=== PATIENT | female | born 1995 | race Caucasian/White ===

== ENCOUNTER 2016-10-08 13:30 | Emergency (ER) | payer OTHER ==
[~2016-10-08] VITALS: Ht 162.6 cm; Wt 49.3 kg
[2016-10-08 13:31] VITALS: BP 111/75
== END 2016-10-08 15:04 | disposition left against medical advice (07) ==
LOC: M ED 14:57
DX: R14.0 Abdominal distension (gaseous) (principal); Z53.29 Procedure and treatment not carried out because of patient's decision for other reasons

== ENCOUNTER → 2016-12-03 | Outpatient (REF) | payer MEDICAID | LOC: M SFHCWAGY 16:47 | PROVIDERS: ATTEND Nurse Practitioner Family | DX: M35.09 Sjogren syndrome with other organ involvement (principal); G56.01 Carpal tunnel syndrome, right upper limb; M77.11 Lateral epicondylitis, right elbow; M77.42 Metatarsalgia, left foot; Z79.899 Other long term (current) drug therapy ==

== ENCOUNTER → 2017-01-29 | Outpatient (CLI) | payer OTHER ==
[2017-01-29 15:43] LABS: BASO % 0.8 % (0.0-1.0); EOS # 0.4 10^3/uL (0.0-0.50); EOS % 8.3 % (0.0-3.0); IMMATURE GRANULOCYTE % 0.2 % (0-0); LYMPH # 1.6 10^3/uL (1.5-6.5); LYMPH % 31.3 % (24.0-44.0); MEAN CORPUSCULAR HEMOGLOBIN 29.3 pg (27.0-33.0); MEAN CORPUSCULAR HGB CONC 33.4 g/dl (32.0-36.5); MEAN CORPUSCULAR VOLUME 87.7 fl (80.0-96.0); MONO # 0.6 10^3/uL (0.0-0.8); MONO % 11.6 % (0.0-5.0); NEUTROPHILS # 2.5 10^3/uL (1.8-7.7); NEUTROPHILS % 47.8 % (36.0-66.0); PLATELET COUNT, AUTOMATED 230 10^3/uL (150-450); RED CELL DISTRIBUTION WIDTH 12.9 % (11.5-14.5); WHITE BLOOD COUNT 5.2 10^3/uL (4.0-10.0)
[2017-01-29 16:32] LABS: ALBUMIN/GLOBULIN RATIO 1.67 (1.00-1.93); ALKALINE PHOSPHATASE 47 U/L (45-117); ALT/SGPT 20 U/L (12-78); AMYLASE 46 U/L (25-115); ANION GAP 8 MEQ/L (8-16); AST/SGOT 13 U/L (15-37); BILIRUBIN,TOTAL 0.6 MG/DL (0.2-1.0); BLOOD UREA NITROGEN 11 MG/DL (7-18); CALCIUM LEVEL 8.7 MG/DL (8.5-10.1); CARBON DIOXIDE LEVEL 25 MEQ/L (21-32); CHLORIDE LEVEL 107 MEQ/L (98-107); CREATININE FOR GFR 0.63 MG/DL (0.55-1.02); FERRITIN 31 NG/ML (8-252); GLUCOSE, FASTING 78 MG/DL (70-105); SODIUM LEVEL 140 MEQ/L (136-145); TOTAL PROTEIN 6.4 GM/DL (6.4-8.2)
== END ==
LOC: M LAB 15:10
PROVIDERS: ATTEND Nurse Practitioner Adult Health
DX: R63.0 Anorexia (principal); R10.9 Unspecified abdominal pain

== ENCOUNTER → 2017-02-10 | Outpatient (CLI) | payer OTHER ==
--- NOTE | 2017-02-11 02:27 | REP ---
Clinical: Nausea. Technique: Single supine view of the abdomen and pelvis. Findings: Bowel gas pattern is nonspecific. No organomegaly. No abnormal calcifications. Skeletal structures are intact. Impression: Normal abdominal radiograph. Signed by Joshua Arias MD 02/11/2017 02:19 A
== END ==
LOC: M RAD 15:24
PROVIDERS: ATTEND Nurse Practitioner Adult Health
DX: R11.0 Nausea (principal); R63.0 Anorexia; R10.9 Unspecified abdominal pain

== ENCOUNTER 2017-05-24 14:21 | Emergency (ER) | payer OTHER ==
[2017-05-24] MEDS: NORCO, ANEXSIA 5/325MG TABLET (HYDROcodone/ACETAMINOPHEN) PO (17:54)
[2017-05-24 18:14] LABS: KETONE, URINE AUTO RFX 1+ mg/dL (NEGATIVE); LEUKOCYTE ESTERASE UR AUTO RFX NEGATIVE (NEGATIVE); MUCUS, URINE RFX LARGE (NEGATIVE); NITRITE, URINE AUTO RFX NEGATIVE (NEGATIVE); RBC, URINE AUTO RFX 4 /HPF (0-3); SPECIFIC GRAVITY UR AUTO RFX 1.029 (1.002-1.035); SQUAM EPITHELIAL CELL UR AURFX 3 /HPF (0-6); WBC, URINE AUTO RFX 3 /HPF (0-3)
== END 2017-05-24 19:48 | disposition home or self-care (01) ==
LOC: M ED 14:21
DX: N94.6 Dysmenorrhea, unspecified (principal); J45.909 Unspecified asthma, uncomplicated; N83.209 Unspecified ovarian cyst, unspecified side; Z88.0 Allergy status to penicillin; Z88.1 Allergy status to other antibiotic agents; Z88.2 Allergy status to sulfonamides; Z87.891 Personal history of nicotine dependence
CPT/HCPCS: 76856

== ENCOUNTER → 2017-10-04 | Outpatient (REF) | payer OTHER ==
[2017-10-06 14:16] LABS: HPV HYBRID CAPTURE II Negative (Negative)
== END ==
LOC: M LAB REF 18:58
DX: Z12.4 Encounter for screening for malignant neoplasm of cervix (principal)

== ENCOUNTER → 2018-05-19 | Outpatient (CLI) | payer OTHER ==
[~2018-05-19] MED LIST: IBUP-1022 PO
[2018-05-19 18:18] LABS: BASO % 0.4 % (0.0-1.0); EOS # 0.1 10^3/uL (0.0-0.50); EOS % 0.9 % (0.0-3.0); HEMOGLOBIN 13.1 g/dl (12.0-15.5); LYMPH # 1.9 10^3/uL (1.5-6.5); LYMPH % 19.3 % (24.0-44.0); MEAN CORPUSCULAR HEMOGLOBIN 29.2 pg (27.0-33.0); MEAN CORPUSCULAR HGB CONC 33.6 g/dl (32.0-36.5); MEAN CORPUSCULAR VOLUME 86.9 fl (80.0-96.0); MONO # 0.7 10^3/uL (0.0-0.8); MONO % 7.6 % (0.0-5.0); NEUTROPHILS # 6.9 10^3/uL (1.8-7.7); NEUTROPHILS % 71.2 % (36.0-66.0); PLATELET COUNT, AUTOMATED 347 10^3/uL (150-450); RED BLOOD COUNT 4.49 10^6/uL (4.00-5.40); WHITE BLOOD COUNT 9.7 10^3/uL (4.0-10.0)
[2018-05-19 20:52] LABS: CHLAMYDIA DNA AMPLIFICATION NEGATIVE (NEGATIVE); GC DNA AMPLIFICATION NEGATIVE (NEGATIVE)
[2018-05-20 11:19] LABS: HIV 1&2 SCREEN CENTAUR NEGATIVE (NEGATIVE); RUBELLA IgG QUALITATIVE IMMUNE (IMMUNE)
== END ==
LOC: M SMT 14:52
PROVIDERS: ATTEND Advanced Practice Midwife
DX: Z36.89 Encounter for other specified antenatal screening (principal)

== ENCOUNTER → 2018-11-25 | Outpatient (REF) | payer OTHER | LOC: M LAB REF 16:56 | PROVIDERS: ATTEND Physician Assistant | DX: J02.9 Acute pharyngitis, unspecified (principal) ==

== ENCOUNTER → 2019-01-06 | Outpatient (REF) | payer OTHER ==
[2019-01-06 21:25] LABS: CHLAMYDIA DNA AMPLIFICATION NEGATIVE (NEGATIVE); GC DNA AMPLIFICATION NEGATIVE (NEGATIVE)
== END ==
LOC: M SFHCWAGY 15:34
PROVIDERS: ATTEND Nurse Practitioner Family
DX: Z11.3 Encounter for screening for infections with a predominantly sexual mode of transmission (principal)

== ENCOUNTER → 2019-03-03 | Outpatient (REF) | payer OTHER ==
[2019-03-03 19:17] LABS: CHLAMYDIA DNA AMPLIFICATION NEGATIVE (NEGATIVE); GC DNA AMPLIFICATION NEGATIVE (NEGATIVE)
== END ==
LOC: M SMT 16:47
PROVIDERS: ATTEND Nurse Practitioner Family
DX: Z11.3 Encounter for screening for infections with a predominantly sexual mode of transmission (principal)

== ENCOUNTER → 2019-03-03 | Outpatient (REF) | payer OTHER | LOC: M SFHCWAGY 15:54 | PROVIDERS: ATTEND Nurse Practitioner Family | DX: Z12.4 Encounter for screening for malignant neoplasm of cervix (principal); R87.5 Abnormal microbiological findings in specimens from female genital organs ==

== ENCOUNTER → 2019-08-16 | Outpatient (REF) | payer OTHER ==
[2019-08-16 19:45] LABS: CHLAMYDIA DNA AMPLIFICATION NEGATIVE (NEGATIVE); GC DNA AMPLIFICATION NEGATIVE (NEGATIVE)
== END ==
LOC: M LAB REF 16:14
PROVIDERS: ATTEND Physician Assistant
DX: Z11.3 Encounter for screening for infections with a predominantly sexual mode of transmission (principal)

== ENCOUNTER → 2019-10-05 | Outpatient (REF) | payer OTHER ==
[2019-10-06 12:45] LABS: CHLAMYDIA DNA AMPLIFICATION NEGATIVE (NEGATIVE); GC DNA AMPLIFICATION NEGATIVE (NEGATIVE)
== END ==
LOC: M SFHCWAGY 10:13
PROVIDERS: ATTEND Specialist
DX: Z20.2 Contact with and (suspected) exposure to infections with a predominantly sexual mode of transmission (principal)

== ENCOUNTER → 2019-12-26 | Outpatient (REF) | payer OTHER | LOC: M LAB REF 19:24 | PROVIDERS: ATTEND Physician Assistant Medical | DX: J02.9 Acute pharyngitis, unspecified (principal) ==

== ENCOUNTER 2020-04-02 16:20 | Emergency (ER) | payer OTHER ==
[~2020-04-02] VITALS: Ht 157.5 cm; Wt 45.1 kg
[2020-04-02] MEDS ORDERED: NS 1,000 ML IV ONE (17:30)
[2020-04-02 18:27] LABS: HCG, SERUM QUALITATIVE NEGATIVE (NEGATIVE)
[2020-04-02] MEDS ORDERED: diphenhydrAMINE 50MG/ML VIAL (J1200) IV STA (18:32)
[2020-04-02] MEDS ORDERED: KETOROLAC 30 MG/ML 1ML VIAL IV ONE (18:45)
[2020-04-02] MEDS ORDERED: METOCLOPRAMIDE INJ 10MG/2ML VIAL (J2765 PER 1) IV ONE (18:45)
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
[2020-04-02] MEDS ORDERED: ONDA4TAB6 PO (19:59)
[2020-04-02 20:12] VITALS: BP 118/63
== END 2020-04-02 20:14 | disposition home or self-care (01) ==
LOC: M ED 16:20
DX: S06.0X0A Concussion without loss of consciousness, initial encounter (principal); S60.931A Unspecified superficial injury of right thumb, initial encounter; T14.8XXA Other injury of unspecified body region, initial encounter; Y04.8XXA Assault by other bodily force, initial encounter; Y92.512 Supermarket, store or market as the place of occurrence of the external cause; Y93.9 Activity, unspecified; Y99.9 Unspecified external cause status; Z87.891 Personal history of nicotine dependence; Z88.0 Allergy status to penicillin; Z88.2 Allergy status to sulfonamides; Z88.1 Allergy status to other antibiotic agents
CPT/HCPCS: 70450; 70486; 72125; 73130; 84703; 96361; 96374; 96375; 99284; J1200; J1885; J2765

== ENCOUNTER 2020-06-26 15:39 | Emergency (ER) | payer OTHER ==
[~2020-06-26] VITALS: Ht 157.5 cm; Wt 43.8 kg
[~2020-06-26 15:39] MED LIST changes: +ONDA4TAB6 PO
[2020-06-26] MEDS ORDERED: ONDANSETRON 4MG/2ML VIAL IV ONE (17:15)
[2020-06-26] MEDS ORDERED: NS 1,000 ML IV ONE (17:15)
[2020-06-26] MEDS ORDERED: KETOROLAC 30 MG/ML 1ML VIAL IV ONE (17:15)
[2020-06-26 18:11] LABS: BASO # 0.1 10^3/uL (0.0-0.2); EOS # 0.2 10^3/uL (0.0-0.5); EOS % 2.8 % (0.0-3.0); HEMATOCRIT 44.5 % (36.0-47.0); HEMOGLOBIN 14.2 g/dl (12.0-15.5); LYMPH % 35.5 % (24.0-44.0); MEAN CORPUSCULAR HEMOGLOBIN 28.7 pg (27.0-33.0); MEAN CORPUSCULAR HGB CONC 31.9 g/dl (32.0-36.5); MEAN CORPUSCULAR VOLUME 89.9 fl (80.0-96.0); MONO # 0.6 10^3/uL (0.0-0.8); MONO % 10.1 % (2.0-8.0); NEUTROPHILS # 2.9 10^3/uL (1.5-8.5); NEUTROPHILS % 50.4 % (36.0-66.0); PLATELET COUNT, AUTOMATED 305 10^3/uL (150-450); RED BLOOD COUNT 4.95 10^6/uL (4.00-5.40); WHITE BLOOD COUNT 5.8 10^3/uL (4.0-10.0)
[2020-06-26 18:37] LABS: ALBUMIN 4.5 GM/DL (3.2-5.2); BILIRUBIN,DIRECT 0.1 MG/DL (0.0-0.2); BILIRUBIN,TOTAL 0.4 MG/DL (0.2-1.0); TOTAL PROTEIN 7.3 GM/DL (6.4-8.2)
[2020-06-26 18:43] LABS: RSV AMPLIFICATION NEGATIVE (NEGATIVE)
[2020-06-26] MEDS ORDERED: ONDA4TAB6 PO (19:17)
[2020-06-26 19:47] VITALS: BP 119/75
== END 2020-06-26 19:52 | disposition home or self-care (01) ==
LOC: M ED 15:39
DX: R10.32 Left lower quadrant pain (principal); R11.2 Nausea with vomiting, unspecified; J45.909 Unspecified asthma, uncomplicated; Z88.0 Allergy status to penicillin; Z88.2 Allergy status to sulfonamides; Z88.1 Allergy status to other antibiotic agents
CPT/HCPCS: 80047; 80076; 83690; 84702; 85025; 87631; 96361; 96374; 96375; 99284; J1885; J2405

== ENCOUNTER → 2020-07-17 | Outpatient (REF) | payer OTHER ==
[2020-07-17 20:24] LABS: CHLAMYDIA DNA AMPLIFICATION NEGATIVE (NEGATIVE); GC DNA AMPLIFICATION NEGATIVE (NEGATIVE)
== END ==
LOC: M SFHCWAGY 17:33
PROVIDERS: ATTEND Nurse Practitioner Women's Health
DX: Z11.3 Encounter for screening for infections with a predominantly sexual mode of transmission (principal)

== ENCOUNTER 2020-11-23 00:42 | Emergency (ER) | payer OTHER ==
[~2020-11-23] VITALS: Ht 157.5 cm; Wt 40.8 kg
[2020-11-23 00:45] VITALS: BP 120/75
== END 2020-11-23 02:53 | disposition left against medical advice (07) ==
LOC: M ED 00:42
DX: Z53.21 Procedure and treatment not carried out due to patient leaving prior to being seen by health care provider (principal)

== ENCOUNTER 2020-12-03 16:36 | Emergency (ER) | payer OTHER ==
[~2020-12-03] VITALS: Ht 160 cm; Wt 46.3 kg
[2020-12-03 16:37] VITALS: BP 123/79
--- NOTE | 2020-12-04 07:16 | ECGEPIP ---
[facility] - ED Test Date: 2020-12-03 Pat Name: CHERELLE AYERS Department: Room: - Gender: Female [employer]: THAIS : 1995 Requested By: JV Ricci Order Number: [id number] Reading MD: Gasper Sanders Measurements Intervals [place] Rate: 69 P: 75 OK: 138 QRS: -11 QRSD: 76 T: 17 QT: 362 QTc: 387 Interpretive Statements Normal sinus rhythm with sinus arrhythmia Low voltage QRS POOR R WAVE PROGRESSION NSTTW ABNORMALITY(S) NO PRIORS FOR COMPARISON Electronically Signed on 12-04-2020 7:16:09 EDT by Gasper Sanders
== END 2020-12-03 21:55 | disposition left against medical advice (07) ==
LOC: M ED 16:36
DX: Z53.21 Procedure and treatment not carried out due to patient leaving prior to being seen by health care provider (principal)

== ENCOUNTER → 2021-10-06 | Outpatient (REF) | payer OTHER | LOC: M PLALAB 13:12 | PROVIDERS: ATTEND Advanced Practice Midwife | DX: Z36.89 Encounter for other specified antenatal screening (principal); Z3A.00 Weeks of gestation of pregnancy not specified; Z53.8 Procedure and treatment not carried out for other reasons ==

== ENCOUNTER → 2021-10-16 | Outpatient (CLI) | payer OTHER ==
[2021-10-16 15:24] LABS: BASO % 0.3 % (0.0-1.0); EOS # 0.1 10^3/uL (0.0-0.5); EOS % 1.5 % (0.0-3.0); HEMATOCRIT 38.4 % (36.0-47.0); HEMOGLOBIN 12.6 g/dl (12.0-15.5); LYMPH # 1.6 10^3/uL (1.5-5.0); LYMPH % 17.8 % (24.0-44.0); MEAN CORPUSCULAR HEMOGLOBIN 29.1 pg (27.0-33.0); MEAN CORPUSCULAR HGB CONC 32.8 g/dl (32.0-36.5); MEAN CORPUSCULAR VOLUME 88.7 fl (80.0-96.0); MONO # 0.5 10^3/uL (0.0-0.8); MONO % 6.2 % (2.0-8.0); NEUTROPHILS # 6.5 10^3/uL (1.5-8.5); NEUTROPHILS % 73.9 % (36.0-66.0); PLATELET COUNT, AUTOMATED 331 10^3/uL (150-450); RED BLOOD COUNT 4.33 10^6/uL (4.00-5.40); WHITE BLOOD COUNT 8.7 10^3/uL (4.0-10.0)
[2021-10-16 17:08] LABS: GC DNA AMPLIFICATION NEGATIVE (NEGATIVE)
[2021-10-16 23:57] LABS: HEPATITIS C VIRUS ABY INDEX 0.1 INDEX (<0.8); HIV 1&2 SCREEN CENTAUR NEGATIVE (NEGATIVE)
== END ==
LOC: M PLALAB 13:33
PROVIDERS: ATTEND Advanced Practice Midwife
DX: Z34.81 Encounter for supervision of other normal pregnancy, first trimester (principal)

== ENCOUNTER → 2021-11-03 | Outpatient (CLI) | payer MEDICAID | LOC: M OUTALCOH 08:06 | PROVIDERS: ATTEND Psychiatry & Neurology Psychiatry | DX: Z13.30 Encounter for screening examination for mental health and behavioral disorders, unspecified (principal) ==

== ENCOUNTER → 2021-11-10 | Outpatient (CLI) | payer OTHER | LOC: M WHC 08:56 | PROVIDERS: ATTEND Advanced Practice Midwife | DX: Z34.82 Encounter for supervision of other normal pregnancy, second trimester (principal); Z53.9 Procedure and treatment not carried out, unspecified reason ==

== ENCOUNTER 2021-11-18 09:29 | Outpatient (RCR) | payer MEDICAID | END 2021-11-23 | LOC: M OUTALCOH 09:29 | PROVIDERS: ATTEND Psychiatry & Neurology Psychiatry | DX: F15.20 Other stimulant dependence, uncomplicated (principal); F12.10 Cannabis abuse, uncomplicated ==

== ENCOUNTER 2021-12-03 09:33 | Emergency (ER) | payer MEDICAID, OTHER ==
[~2021-12-03] VITALS: Ht 157.5 cm; Wt 52.9 kg
[2021-12-03] MEDS ORDERED: ACETAMINOPHEN 325 MG TAB PO ONE (11:25)
[2021-12-03 13:41] VITALS: BP 103/57
== END 2021-12-03 13:56 | disposition home or self-care (01) ==
LOC: M ED 09:33
DX: O9A.212 Injury, poisoning and certain other consequences of external causes complicating pregnancy, second trimester (principal); O9A.312 Physical abuse complicating pregnancy, second trimester; S52.501A Unspecified fracture of the lower end of right radius, initial encounter for closed fracture; S06.0X9A Concussion with loss of consciousness of unspecified duration, initial encounter; S00.93XA Contusion of unspecified part of head, initial encounter; Y07.03 Male partner, perpetrator of maltreatment and neglect; Y92.099 Unspecified place in other non-institutional residence as the place of occurrence of the external cause; Z3A.18 18 weeks gestation of pregnancy; O99.332 Smoking (tobacco) complicating pregnancy, second trimester; Z88.0 Allergy status to penicillin; Z88.1 Allergy status to other antibiotic agents; Z88.2 Allergy status to sulfonamides

== ENCOUNTER → 2021-12-17 | Outpatient (CLI) | payer OTHER | LOC: M WHC 11:44 | PROVIDERS: ATTEND Advanced Practice Midwife | DX: Z34.92 Encounter for supervision of normal pregnancy, unspecified, second trimester (principal); Z36.89 Encounter for other specified antenatal screening; Z3A.20 20 weeks gestation of pregnancy ==

== ENCOUNTER 2021-12-22 14:00 | Outpatient (RCR) | payer MEDICAID | END 2021-12-24 | LOC: M OUTALCOH 14:00 | PROVIDERS: ATTEND Psychiatry & Neurology Psychiatry | DX: F15.20 Other stimulant dependence, uncomplicated (principal); F12.10 Cannabis abuse, uncomplicated ==

== ENCOUNTER 2022-01-22 12:36 | Outpatient (RCR) | payer MEDICAID ==
[~2022-01-22 12:36] MED LIST changes: +FLOM0.4C39 PO; +PERC5TAB12 PO; +PRENTAB9 PO
== END 2022-01-23 ==
LOC: M OUTALCOH 12:36
PROVIDERS: ATTEND Psychiatry & Neurology Psychiatry
DX: F15.20 Other stimulant dependence, uncomplicated (principal); F12.10 Cannabis abuse, uncomplicated

== ENCOUNTER → 2022-02-13 | Outpatient (CLI) | payer MEDICAID, OTHER ==
[2022-02-13 15:49] LABS: HEMATOCRIT 31.3 % (36.0-47.0); HEMOGLOBIN 10.2 g/dl (12.0-15.5); MEAN CORPUSCULAR HEMOGLOBIN 29.2 pg (27.0-33.0); MEAN CORPUSCULAR HGB CONC 32.6 g/dl (32.0-36.5); MEAN CORPUSCULAR VOLUME 89.7 fl (80.0-96.0); PLATELET COUNT, AUTOMATED 281 10^3/uL (150-450); RED BLOOD COUNT 3.49 10^6/uL (4.00-5.40); WHITE BLOOD COUNT 9.6 10^3/uL (4.0-10.0)
== END ==
LOC: M PLALAB 12:51
PROVIDERS: ATTEND Advanced Practice Midwife
DX: Z34.82 Encounter for supervision of other normal pregnancy, second trimester (principal)

== ENCOUNTER → 2022-02-23 | Outpatient (RCR) | payer MEDICAID | LOC: M OUTALCOH 01-26 16:00 | PROVIDERS: ATTEND Psychiatry & Neurology Psychiatry | DX: F15.20 Other stimulant dependence, uncomplicated (principal); F12.10 Cannabis abuse, uncomplicated ==

== ENCOUNTER 2022-03-16 12:56 | Outpatient (RCR) | payer MEDICAID | END 2022-03-25 | LOC: M OUTALCOH 12:56 | PROVIDERS: ATTEND Psychiatry & Neurology Psychiatry | DX: F15.20 Other stimulant dependence, uncomplicated (principal); F12.10 Cannabis abuse, uncomplicated ==

== ENCOUNTER → 2022-03-23 | Outpatient (REF) | LOC: M EMP 15:48 | PROVIDERS: ATTEND Family Medicine | DX: Z11.52 Encounter for screening for COVID-19 (principal) ==

== ENCOUNTER → 2022-03-30 | Outpatient (REF) | payer OTHER | LOC: M SFHCWAGY 16:52 | PROVIDERS: ATTEND Advanced Practice Midwife | DX: Z34.93 Encounter for supervision of normal pregnancy, unspecified, third trimester (principal) ==

== ENCOUNTER → 2022-03-31 | Outpatient (REF) | LOC: M EMP 10:01 | PROVIDERS: ATTEND Family Medicine | DX: Z11.52 Encounter for screening for COVID-19 (principal) ==

== ENCOUNTER 2022-04-06 09:45 | Outpatient (RCR) | payer MEDICAID ==
[2022-04-28] MEDS ORDERED: LEVO75TA4 PO (07:47)
== END 2022-04-25 ==
LOC: M OUTALCOH 09:45
PROVIDERS: ATTEND Psychiatry & Neurology Psychiatry
DX: F15.20 Other stimulant dependence, uncomplicated (principal); F12.10 Cannabis abuse, uncomplicated

== ENCOUNTER → 2022-04-08 | Outpatient (REF) | LOC: M EMP 04-07 08:04 | PROVIDERS: ATTEND Family Medicine | DX: Z20.822 Contact with and (suspected) exposure to COVID-19 (principal) ==

== ENCOUNTER 2022-04-10 09:53 | Outpatient (CLI) | payer MEDICAID, OTHER ==
[~2022-04-10] VITALS: Ht 157.5 cm; Wt 63.3 kg
[2022-04-10 10:10] VITALS: BP 143/74
[2022-04-10 10:20] VITALS: BP 140/70
[2022-04-10 10:37] VITALS: BP 141/67
[2022-04-10 10:50] VITALS: BP 117/59
[2022-04-10 11:05] VITALS: BP 126/72
[2022-04-10 11:07] LABS: HEMATOCRIT 28.6 % (36.0-47.0); HEMOGLOBIN 9.2 g/dl (12.0-15.5); MEAN CORPUSCULAR HGB CONC 32.2 g/dl (32.0-36.5); MEAN CORPUSCULAR VOLUME 80.8 fl (80.0-96.0); PLATELET COUNT, AUTOMATED 209 10^3/uL (150-450); RED BLOOD COUNT 3.54 10^6/uL (4.00-5.40); WHITE BLOOD COUNT 9.6 10^3/uL (4.0-10.0)
[2022-04-10 11:19] LABS: URIC ACID 4.7 MG/DL (3.1-7.8)
[2022-04-10 11:21] LABS: LDH LACTATE DEHYDROGENASE 200 U/L (120-246)
[2022-04-10 11:22] LABS: ALT/SGPT 18 U/L (7.0-40); AST/SGOT 28 U/L (<34); BILIRUBIN,TOTAL 0.4 MG/DL (0.3-1.2); CREATININE FOR GFR 0.59 MG/DL (0.55-1.30); GLOMERULAR FILTRATION RATE > 60.0 (>60)
[2022-04-10 11:56] LABS: APPEARANCE, URINE MANUAL HAZY (CLEAR); COLOR, URINE MANUAL YELLOW (YELLOW); TOTAL PROTEIN,RANDOM URINE 41.3 MG/DL (0.0-14.0)
[2022-04-10 11:58] LABS: BILIRUBIN, URINE MANUAL NEGATIVE (NEGATIVE); BLOOD URINE MANUAL POSITIVE (NEGATIVE); GLUCOSE, URINE (UA) MANUAL NEGATIVE (NEGATIVE); KETONE, URINE MANUAL NEGATIVE (NEGATIVE); LEUKOCYTE ESTERASE, URINE MAN POSITIVE (NEGATIVE); NITRITE, URINE MANUAL NEGATIVE (NEGATIVE); PROTEIN, URINE MANUAL NEGATIVE (NEGATIVE); UROBILINOGEN, URINE MANUAL NORMAL (NORMAL)
[2022-04-10 12:01] LABS: CREATININE,RANDOM URINE 201.1 MG/DL
[2022-04-10 12:17] LABS: SQUAMOUS EPITHELIAL CELL URINE LARGE AMOUNT /hpf (SMALL AMT)
[2022-04-10 12:18] LABS: HYALINE CAST, URINE NONE SEEN /lpf (0-1)
[2022-04-10 12:19] LABS: BACTERIA, URINE MOD AMOUNT
[2022-04-10 12:39] VITALS: BP 133/64
== END 2022-04-10 13:50 | disposition home or self-care (01) ==
LOC: M LDO 09:53
PROVIDERS: ATTEND Advanced Practice Midwife
DX: O99.013 Anemia complicating pregnancy, third trimester (principal); D50.9 Iron deficiency anemia, unspecified; Z3A.36 36 weeks gestation of pregnancy

== ENCOUNTER → 2022-04-15 | Outpatient (CLI) | payer MEDICAID, OTHER ==
[~2022-04-15] VITALS: Ht 160 cm; Wt 63.0 kg
[~2022-04-15] MED LIST changes: +IRON SUCROSE 500 MG in NS 250 ML OVER 4 HRS IV ONE
[2022-04-15 08:20] VITALS: BP 131/59
[2022-04-15 09:15] VITALS: BP 136/63
[2022-04-15 10:15] VITALS: BP 116/57
[2022-04-15 11:15] VITALS: BP 120/60
[2022-04-15 12:15] VITALS: BP 118/58
[2022-04-15 13:02] VITALS: BP 110/72
== END ==
LOC: M INFU 08:04
PROVIDERS: ATTEND Obstetrics & Gynecology
DX: D64.9 Anemia, unspecified (principal); Z88.0 Allergy status to penicillin; Z88.1 Allergy status to other antibiotic agents; Z88.2 Allergy status to sulfonamides; Z88.8 Allergy status to other drugs, medicaments and biological substances
CPT/HCPCS: 96365; 96366; J1756

== ENCOUNTER 2022-12-25 23:36 | Emergency (ER) | payer MEDICAID, OTHER ==
[~2022-12-25] VITALS: Ht 158.8 cm; Wt 47.2 kg
[~2022-12-25 23:36] MED LIST changes: +ACET-683 PO; -IRON SUCROSE 500 MG in NS 250 ML OVER 4 HRS IV ONE; +LEVO75TA4 PO
[2022-12-26 00:20] LABS: HEMOGLOBIN 13.8 g/dl (12.0-15.5); MEAN CORPUSCULAR HEMOGLOBIN 27.7 pg (27.0-33.0); MEAN CORPUSCULAR HGB CONC 32.9 g/dl (32.0-36.5); MEAN CORPUSCULAR VOLUME 84.3 fl (80.0-96.0); PLATELET COUNT, AUTOMATED 340 10^3/uL (150-450); RED BLOOD COUNT 4.98 10^6/uL (4.00-5.40); WHITE BLOOD COUNT 8.5 10^3/uL (4.0-10.0)
[2022-12-26 00:34] LABS: AMPHETAMINES LEVEL URINE NEGATIVE (NEGATIVE); BENZODIAZEPINES URINE NEGATIVE (NEGATIVE); PHENCYCLIDINE URINE NEGATIVE (NEGATIVE)
[2022-12-26 00:35] LABS: BARBITURATES URINE NEGATIVE (NEGATIVE); COCAINE METABOLITE URINE NEGATIVE (NEGATIVE); METHADONE URINE NEGATIVE (NEGATIVE); OPIATES URINE NEGATIVE (NEGATIVE)
[2022-12-26 00:36] LABS: CANNABINOIDS URINE POSITIVE (NEGATIVE)
[2022-12-26 00:37] LABS: ETHYL ALCOHOL (ETHANOL) < 0.003 % (0.000-0.010)
[2022-12-26 00:38] LABS: SALICYLATE LEVEL < 3.0 MG/DL (<30)
[2022-12-26 00:39] LABS: ACETAMINOPHEN LEVEL < 2.0 UG/ML (10.0-20.0); ALKALINE PHOSPHATASE 60 U/L (46-116); ALT/SGPT 14 U/L (7.0-40); AST/SGOT < 8 U/L (<34); BILIRUBIN,DIRECT 0.3 MG/DL (<0.4); BILIRUBIN,TOTAL 0.7 MG/DL (0.3-1.2); BLOOD UREA NITROGEN 15 MG/DL (9-23); CALCIUM LEVEL 9.7 MG/DL (8.5-10.1); CARBON DIOXIDE LEVEL 21 MMOL/L (20-31); CHLORIDE LEVEL 107 MMOL/L (98-107); CREATININE FOR GFR 0.72 MG/DL (0.55-1.30); GLOMERULAR FILTRATION RATE > 60.0 (>60); GLUCOSE, FASTING 92 MG/DL (60-100); POTASSIUM SERUM 3.8 MMOL/L (3.5-5.1); SODIUM LEVEL 142 MMOL/L (136-145)
[2022-12-26 00:41] LABS: THYROID STIMULATING HORMONE 4.693 uIU/ML (0.55-4.78)
[2022-12-26 13:11] LABS: HCG, SERUM QUALITATIVE NEGATIVE (NEGATIVE)
[2022-12-26 19:25] VITALS: BP 131/80; TEMP 98.6; O2SAT 100
== END 2022-12-26 19:21 ==
LOC: M ED 23:36
DX: R45.851 Suicidal ideations (principal); F32.A Depression, unspecified; I44.4 Left anterior fascicular block; F17.200 Nicotine dependence, unspecified, uncomplicated; F12.10 Cannabis abuse, uncomplicated; Z88.0 Allergy status to penicillin; Z88.2 Allergy status to sulfonamides; Z88.8 Allergy status to other drugs, medicaments and biological substances

== ENCOUNTER 2023-03-01 16:08 | Emergency (ER) | payer OTHER ==
[~2023-03-01] VITALS: Ht 157.5 cm; Wt 47.3 kg
[2023-03-01] MEDS ORDERED: CLEO300C2 PO (20:55)
[2023-03-01] MEDS ORDERED: dexAMETHasone 4 MG TAB PO ONE (20:55)
[2023-03-01] MEDS ORDERED: CLINDAMYCIN 150MG CAPSULE PO ONE (20:55)
[2023-03-01] MEDS ORDERED: IBUP-1022 PO (20:58)
[2023-03-01] MEDS ORDERED: METR-265 PO (21:05)
[2023-03-01] MEDS ORDERED: CIPR-249 PO (21:05)
[2023-03-01] MEDS ORDERED: metroNIDAZOLE (FLAGYL) 500MG TABLET PO ONE (21:05)
[2023-03-01] MEDS ORDERED: CIPROFLOXACIN 500MG TABLET PO ONE (21:05)
[2023-03-01 21:06] VITALS: BP 121/77; TEMP 96.1; O2SAT 100
== END 2023-03-01 21:16 | disposition home or self-care (01) ==
LOC: M ED 16:08
DX: K02.9 Dental caries, unspecified (principal); K08.89 Other specified disorders of teeth and supporting structures; Z88.0 Allergy status to penicillin; Z88.1 Allergy status to other antibiotic agents; Z88.2 Allergy status to sulfonamides; Z79.2 Long term (current) use of antibiotics; Z79.1 Long term (current) use of non-steroidal anti-inflammatories (NSAID); Z79.899 Other long term (current) drug therapy

== ENCOUNTER 2023-04-26 18:17 | Emergency (ER) | payer OTHER ==
[~2023-04-26] VITALS: Ht 157.5 cm; Wt 44.2 kg
[~2023-04-26 18:17] MED LIST changes: +CIPR-249 PO; +CLEO300C2 PO; +METR-265 PO
[2023-04-26 19:31] LABS: RSV AMPLIFICATION NEGATIVE (NEGATIVE)
[2023-04-26] MEDS ORDERED: PSEU120T19 PO (20:21)
[2023-04-26] MEDS ORDERED: IBUP80TA PO (20:21)
[2023-04-26 20:29] VITALS: BP 120/84; TEMP 98.5; O2SAT 98
== END 2023-04-26 20:31 | disposition home or self-care (01) ==
LOC: M ED 18:17
DX: J09.X2 Influenza due to identified novel influenza A virus with other respiratory manifestations (principal); F17.200 Nicotine dependence, unspecified, uncomplicated; F12.10 Cannabis abuse, uncomplicated; Z88.0 Allergy status to penicillin; Z88.1 Allergy status to other antibiotic agents; Z88.2 Allergy status to sulfonamides; Z88.8 Allergy status to other drugs, medicaments and biological substances; Z79.1 Long term (current) use of non-steroidal anti-inflammatories (NSAID); Z79.899 Other long term (current) drug therapy

== ENCOUNTER → 2024-04-03 | Outpatient (REF) | payer OTHER ==
[~2024-04-03] MED LIST changes: +IBUP80TA PO; +ONDA-282 PO; -ONDA4TAB6 PO; +PSEU120T19 PO
== END ==
LOC: M LAB REF 12:24
PROVIDERS: ATTEND Physician Assistant Medical
DX: B34.9 Viral infection, unspecified (principal)

== ENCOUNTER → 2024-11-01 | Outpatient (REF) | payer OTHER ==
[~2024-11-01] MED LIST changes: -FLOM0.4C39 PO; +TAMS-18 PO
== END ==
LOC: M LAB REF 17:09
PROVIDERS: ATTEND Physician Assistant
DX: B34.9 Viral infection, unspecified (principal)

== ENCOUNTER → 2024-11-16 | Outpatient (REF) | LOC: M EMP 08:34 | PROVIDERS: ATTEND Family Medicine | DX: Z01.89 Encounter for other specified special examinations (principal) ==

== ENCOUNTER → 2025-02-22 | Outpatient (REF) | payer OTHER ==
[~2025-02-22] MED LIST changes: -IBUP-1022 PO; +IBUP600T42 PO
[2025-02-23 11:54] LABS: Trichomonas vaginalis (AMP) NOT DETECTED (NEGATIVE)
[2025-02-23 12:18] LABS: GC DNA AMPLIFICATION NEGATIVE (NEGATIVE)
[2025-02-27 13:42] LABS: HPV APTIMA Not Detected (Not Detected)
== END ==
LOC: M PLALAB 16:49
PROVIDERS: ATTEND Physician Assistant
DX: Z12.4 Encounter for screening for malignant neoplasm of cervix (principal); Z11.3 Encounter for screening for infections with a predominantly sexual mode of transmission